=== PATIENT | female | born 1990 | race Caucasian/White ===

== ENCOUNTER 2016-11-26 13:48 | Inpatient (IN) | payer OTHER ==
[~2016-11-26] VITALS: Ht 162.6 cm; Wt 71.0 kg
[~2016-11-26 13:48] MED LIST: BND25 PO; MTR600X PO; PRENTAB26 PO
[2016-11-26] MEDS ORDERED: LACTATED RINGER'S 1000ML 1,000 ML IV PRN (14:31)
[2016-11-26] MEDS ORDERED: LACTATED RINGER'S 1000ML 1,000 ML IV SCH ×2 (14:31→19:02)
[2016-11-26] MEDS ORDERED: CEFAZOLIN IV 2,000 MG in DEXTROSE 5% 50ML 50 ML IV ONE ×2 (14:45→18:00)
--- NOTE | 2016-11-26 15:05 | HISTORY & PHYSICAL EXAMINATION ---
DATE OF ADMISSION: 11/26/2016 CHIEF COMPLAINT: Sent from office for nonreactive NST and low biophysical profile. HISTORY OF PRESENT ILLNESS: The patient is a 26-year-old G2, P1-0-0-1 at 40 weeks and 1 day of gestation who presented to office today for a routine nonstress test for postdates. The heart rate was around 150s with minimal variability. She had 1 decel to 100 with quick recovery. She was sent to ultrasound for biophysical profile. Her RAJESH was normal at 19 cm but they have not seen any movements or breathing and the BPP was 2/10. She was sent to here for further management. She has no complaints other than being nervous. She had normal spontaneous vaginal delivery last year by myself and uncomplicated. This has been uncomplicated. She has been feeling lots of movements until 2 days ago when the baby movement was decreased some per her. She states baby has been still moving enough but not as much as before. Baby was moving this morning around 9:00 a.m. She does not remember how many times. She denies contractions, leakage of fluid, or vaginal bleeding. She denies fever, chills, chest pain, shortness of breath, headache, change in her vision or any cold symptoms. Her has been uncomplicated except: 1. GBS positive. GBS was positive in her urine. 2. History of depression. She was on BuSpar. She stopped that during and she is doing well now. PAST MEDICAL HISTORY: As above. PAST SURGICAL HISTORY: None. MEDICATIONS: vitamins, vitamin D3 and probiotic. ALLERGIES: No known drug allergies. SOCIAL HISTORY: The patient denies smoking, alcohol or drug use. OBSTETRICAL HISTORY: She delivered full term in April 2015, baby was 9 pounds 5 ounces boy uncomplicated. This is her second . LABS: Her blood type is O positive, antibody screen negative, GC chlamydia cultures were negative and H\T\H was 13/40, platelets 276. Rubella titer positive, RPR nonreactive, hepatitis B surface antigen negative. HIV negative. Glucola was 144 mg per deciliter and 3-hour OGGT had 1 elevated number. The rest 3 numbers were normal. Her GBS was positive in urine. PHYSICAL EXAMINATION: GENERAL: The patient is alert, oriented x3. She is nervous but not in acute distress. VITAL SIGNS: Blood pressure is 121/76, temperature is 98.9, pulse is 96. CARDIOVASCULAR SYSTEM: S1, S2, RRR. LUNGS: Clear to auscultation bilaterally. ABDOMEN: Soft, nontender, gravid. Jas's 8 pounds. EXTREMITIES: Nontender, no edema. PELVIC EXAMINATION: Cervix is 3-4 cm dilated, 60%, -3 and vertex. scalp stimulation was done during the exam and the heart rate baseline was 170 and it increased to 175. NST: when she presented baseline was 170 and with minimal variability, no acceleration. There was 1 deceleration which appeared like variable to 120 with a quick recovery. Tebbetts: mild irregular ctxs q4-5 min ASSESSMENT AND PLAN: The patient is a 26-year-old G2, P1-0-0-1 at 40 weeks and 1 day of gestation, sent from office for nonreactive NST and BPP 2/10. Vital signs stable, afebrile. No medical problems. GBS positive. The patient is nervous and she wants to avoid . Discussed the findings with her that heart rate is nonreassuring and offered her a trial of IV fluid hydration, oxygen. If this improves we will consider induction of labor with continuous monitoring. If no improvement with IV fluids and oxygen then we recommend imminent delivery via . The patient understands and agrees with the plan. All questions were answered. EMILED
[2016-11-26 15:14] LABS: HEMATOCRIT 33.4 % (37-47); MEAN CORPUSCULAR HEMOGLOBIN 30.9 pg (25-34); MEAN CORPUSCULAR HGB CONC 33.2 g/dl (32-36); MEAN PLATELET VOLUME 10.2 fL (7.4-10.4); PLATELET COUNT 171 K/uL (130-400); RED BLOOD COUNT 3.59 M/uL (4.2-5.4); WHITE BLOOD COUNT 16.21 K/uL (4.8-10.8)
[2016-11-26] MEDS ORDERED: PENICILLIN G POTASSIUM IV 6 MU in DEXTROSE 5% 250ML 250 ML IV ONE (15:15)
[2016-11-26] MEDS ORDERED: PENICILLIN G POTASSIUM IV 3 MU in DEXTROSE 5% 100ML 100 ML IV PRN (15:15)
[2016-11-26] MEDS ORDERED: LIDOCAINE HCL 2% JELLY 30 ML TUBE EXT ONE (15:23)
[2016-11-26 15:46] VITALS: Ht 162.6 cm; Wt 71.0 kg
[2016-11-26] MEDS ORDERED: CHOL400T (15:51)
[2016-11-26] MEDS ORDERED: FENTANYL CITRATE INJ 50 MCG/1 ML 2 ML VIAL ONE ×3 (16:09→17:10)
[2016-11-26] MEDS ORDERED: FENTANYL 2MCG/ML ROPIV 1.25MG/ML 100ML BAG EPI ONE (16:09)
[2016-11-26] MEDS ORDERED: EpHEDrine SULFATE INJ 50 MG/ML AMP ONE (16:09)
[2016-11-26] MEDS ORDERED: BUPIVACAINE 0.25% 30 ML VIAL ONE (16:09)
[2016-11-26] MEDS ORDERED: MoRPHine SULFATE PF 1 MG/ML 10 ML AMP/VIAL ONE ×2 (16:49→17:10)
[2016-11-26] MEDS ORDERED: CITRIC ACID/SODIUM CITRATE 15 ML UDC ONE (16:56)
[2016-11-26] MEDS ORDERED: CITRIC ACID/SODIUM CITRATE 15 ML UDC PO ONE (17:30)
[2016-11-26] MEDS ORDERED: CEFAZOLIN SOD 1 GM VIAL ONE (17:41)
[2016-11-26] MEDS ORDERED: PHENYLEPHRINE HCL INJ 10 MG/ML VIAL ONE (18:03)
[2016-11-26] MEDS ORDERED: NALOXONE HCL INJ 1 MG in SODIUM CHLORIDE 0.9% 1000ML 1,000 ML IV PRN ×4 (18:09)
[2016-11-26] MEDS ORDERED: NALOXONE HCL INJ 0.08 MG in SYRINGE 1.8 ML IV PRN (18:09)
[2016-11-26] MEDS ORDERED: SODIUM CHLORIDE 0.9% 1000ML 1,000 ML IV PRN (18:09)
[2016-11-26] MEDS ORDERED: LACTATED RINGER'S 1000ML 500 ML IV PRN (18:09)
[2016-11-26] MEDS ORDERED: MIDAZOLAM HCL 1 MG/ML 2ML VIAL ONE (18:13)
[2016-11-26] MEDS ORDERED: NO NARCOTICS OR SEDATIVES SCH (18:15)
[2016-11-26] MEDS ORDERED: EpHEDrine SULFATE INJ 50 MG/ML AMP IV PRN (18:15)
[2016-11-26] MEDS ORDERED: PROMETHAZINE HCL INJ 25 MG in SODIUM CHLORIDE 0.9% 50ML 50 ML IV PRN (18:15)
[2016-11-26] MEDS ORDERED: NALOXONE HCL 0.4 MG/1 ML VIAL/CARP IV PRN (18:15)
[2016-11-26] MEDS ORDERED: NALBUPHINE HCL INJ 10 MG/ML AMP IV PRN (18:15)
[2016-11-26] MEDS ORDERED: MoRPHine SULFATE PF 1 MG/ML 10 ML AMP/VIAL EPI PRN (18:15)
[2016-11-26] MEDS ORDERED: ONDANSETRON INJ 2 MG/ML 2 ML VIAL IV PRN (18:15)
[2016-11-26] MEDS ORDERED: DiphenhydrAMINE HCL 50 MG/ML VIAL IV PRN (18:15)
[2016-11-26] MEDS ORDERED: OXYTOCIN INJ 10 UNITS/ML VIAL ONE (18:20)
[2016-11-26] MEDS ORDERED: KETOROLAC TROMETHAMINE 30 MG/ML VIAL ONE (18:20)
--- NOTE | 2016-11-26 19:14 | [facility] Post Operative Brief Note ---
Immediate Operative Summary Operative Date Nov 26, 2016. Pre-Operative Diagnosis Non-reassuring heart rate, remote from delivery Post-Operative Diagnosis Same Procedure(s) Performed Primary low transverse section Surgeon Dr. Mercado Display Artist Surgeon(s) Dr. Davis Estimated Blood Loss 400 Findings Viable male infant Apgars 8/9 Normal uterus fallopian tubes and ovaries Specimens A: Placenta (exam) B: Cord Blood C: Arterial/Venous cord gasses Drains Gorman 275 mg Anesthesia Spinal Complication(s) None Disposition L&D
[2016-11-26] MEDS ORDERED: DIPHTHERIA/TETANUS/PERTUSSIS 0.5 ML SYR/VIAL IM. ONE (19:15)
[2016-11-26] MEDS ORDERED: SENNA 8.6 MG TAB PO PRN (19:15)
[2016-11-26] MEDS ORDERED: HYDROCORTISONE ACETATE 25 MG SUPP PR PRN (19:15)
[2016-11-26] MEDS ORDERED: MEASLES, MUMPS & RUBELLA VIRUS VIAL SQ. ONE (19:15)
[2016-11-26] MEDS ORDERED: SUPERCREAM 0.870 % 15GM JAR EXT PRN (19:15)
[2016-11-26] MEDS ORDERED: BENZOCAINE 20% AER SPR 82.5 GM CAN EXT PRN (19:15)
[2016-11-26] MEDS ORDERED: MAGNESIUM HYDROXIDE SUSP 30 ML UDC PO PRN (19:15)
[2016-11-26] MEDS ORDERED: LANOLIN OINT EXT PRN ×2 (19:15)
[2016-11-26] MEDS: OXYTOCIN INJ 20 UNITS in LACTATED RINGER'S 1000ML 1,000 ML IV SCH (19:27)
--- NOTE | 2016-11-26 19:48 | Anesthesiology Progress Note ---
Anesthesia Post Op Note Date & Time Nov 26, 2016 at 19:47 Notes Mental Status: alert / awake / arousable, participated in evaluation Pt Amnestic to Procedure: No Nausea / Vomiting: adequately controlled Pain: adequately controlled Airway Patency, RR, SpO2: stable & adequate BP & HR: stable & adequate Hydration State: stable & adequate Neuraxial Anesthesia: was administered, sensory block is resolving Anesthetic Complications: no major complications apparent
[2016-11-26] MEDS: DOCUSATE SODIUM 100 MG CAP PO SCH (20:00)
[2016-11-26] MEDS: SIMETHICONE 80 MG CHEW PO SCH (21:00)
[2016-11-26 21:15] VITALS: BP 104/63; PULSE 86; TEMP 36.9; O2SAT 100; O2SAT 98
--- NOTE | 2016-11-26 21:32 | OB/GYN Progress Note ---
WAITER WAITRESS Progress Note Date of Service: Nov 26, 2016. Patient is reevaluated No pain at surgical site yet. Discussed surgery, small superficial laceration on baby's right cheek, pediatricina not ceoncerned, and did not recommend anyhing. Will spontaneously heal by its own. She is okay with this. She can move her legs She has been anxious since she presented to L&D, feeling better after C section She has h/o pp depression, anxiety/ panic attacks after her 1st baby in 2014. She has tried 3 different antidepressants with no help and multiple side effects She has been of them since last May She has been seeing counselor for the last 3-4 months, they recommended her to see a psychiatrist after delivery She feels fine now and likes to see psychiatrist while she is here. Will place the order VSS Afebrile, UOP adequate Abd: soft, NT, fundus firm below U, lochia minimal, dressing dry SCD's on Plan: monitor closely Psyhc consult
[2016-11-26 21:45] VITALS: BP 111/62; PULSE 90; TEMP 36.8; O2SAT 100
[2016-11-26 22:45] VITALS: BP 100/64; PULSE 96; TEMP 36.3; O2SAT 100
[2016-11-26 23:45] VITALS: BP 103/66; PULSE 92; TEMP 36.8; O2SAT 93
[2016-11-27] VITALS (18 sets, daily range): BP systolic 91–105; BP diastolic 55–68; PULSE 88–101; TEMP 36.8–37.4; O2SAT 92–96
--- NOTE | 2016-11-27 03:21 | OPERATIVE REPORT ---
DATE OF OPERATION: 11/26/2016 PREOPERATIVE DIAGNOSIS: The patient is a 26-year-old G2, P 1-0-0-1, at 40 weeks and 1 day of gestation, presented from office with nonreactive nonstress test and biophysical profile of 2/10 and recurrent hear rate decelerations during labor and remote from delivery. POSTOPERATIVE DIAGNOSIS: Same. PROCEDURE: Primary low transverse with Pfannenstiel skin incision. SURGEON: Dr. Henson. PRODUCTION MINER: Dr. Davis. ESTIMATED BLOOD LOSS: 400 FLUIDS: 1500 mL of lactated Ringer's. DRAINS: Gorman drained 275 mL of clear urine. ANESTHESIA: Spinal. Dr. Celis. COMPLICATIONS: None. FINDINGS: Baby was a viable male , Apgars 8/9, delivered at 1756 p.m. Baby was in cephalic presentation with occiput posterior position. Weight 3820 grams. MATERNAL FINDINGS: Normal uterus, fallopian tubes and ovaries. DESCRIPTION OF PROCEDURE: The patient was taken to the operating room where anesthesia was given without difficulty. She was placed in dorsal supine position with a leftward tilt. She was prepared and draped in usual sterile fashion. A Pfannenstiel skin incision was made and carried through to the underlying layer of fascia with Bovie. Fascia was incised in the midline and incision extended laterally with the help of Hernandez scissors. Lower aspect of the fascial incision was grasped with 2 Cameron clamps, elevated, underlying rectus muscles were dissected off sharply with Hernandez scissors. Upper aspect of the fascial incision was then grasped with 2 Cameron clamps, elevated, underlying rectus muscles were dissected off sharply with Hernandez scissors. Rectus muscles were in the midline and the peritoneum was entered bluntly with fingers and the incision was extended superiorly and inferiorly with good visualization of the bladder. Bladder blade was inserted. Lower uterine segment was incised in transverse fashion and then clear fluid was obtained. Then, the baby's head was delivered without difficulty, shoulders were delivered with minimal traction. Mouth and nose were suctioned. Cord was clamped x2 and cut, it was a 3-vessel cord. Then the baby was handed off to the soaking pit operator, Dr. Velasquez. Cord blood was obtained. Placenta was delivered manually as intact and complete. Uterus was exteriorized, cleared off all clots and debris. Uterine incision was repaired with 0 Vicryl in a running locked fashion and a second imbricating layer was placed with 0 Vicryl in a running locked fashion and excellent hemostasis was achieved. Uterus was returned to the abdomen and pelvis was irrigated with warm normal saline and suctioned. Incision was checked to be again hemostatic. Parietal peritoneum was reapproximated with 3-0 Vicryl in a running fashion and rectus muscles were reapproximated with the same suture, 3-0 Vicryl in a running fashion. Rectus fascia was reapproximated with 0 Vicryl in a running fashion. Subcuticular fat tissue was brought together with 3-0 Vicryl in a running fashion. Skin was closed with 4-0 Monocryl in a subcuticular fashion. Mother and baby tolerated the procedure well. Sponge, lap, needle and instrument counts were correct x3 at the end of the procedure and the patient was given cefazolin before the procedure and no complications happened. I was present during the whole procedure. The patient was taken to recovery room in stable condition. I attest to the content of the Intraoperative Record and any orders documented therein. Any exceptions are noted below. EMILED
[2016-11-27] MEDS: OXYTOCIN INJ 20 UNITS in LACTATED RINGER'S 1000ML 1,000 ML IV SCH (04:01)
[2016-11-27] MEDS ORDERED: NURSING VERBAL MED ORDER ONE (04:30)
--- NOTE | 2016-11-27 04:44 | OB/GYN Progress Note ---
CALL CENTER COORDINATOR Progress Note Date of Service: Nov 27, 2016. I was called y her nurse than her BP was 90/60, UOP was low, " not much in the bag", " dark" Patient is seen and examined Feels well, no complaints, other than being tired. Pain is under control with meds She was nauseous earlier after surgery and vomited about 1000 ml. Zofran and Phenergan helped. No CP/ SOB/ Dizziness/ N&V/ VB/ Leg pain Not OOB yet Tolerating clears Date Time Temp Pulse Resp B/P Pulse Ox O2 Delivery O2 Flow Rate FiO2 11/27/16 02:45 16 92 11/27/16 01:35 18 94 11/27/16 00:00 16 92 11/26/16 23:45 36.8 92 16 103/66 93 Room Air 11/26/16 23:45 16 93 11/26/16 23:45 93 Room Air 11/26/16 22:45 18 100 11/26/16 22:45 36.3 96 18 100/64 100 Room Air 11/26/16 21:45 36.8 90 16 111/62 100 Room Air 11/26/16 21:45 16 100 11/26/16 21:15 36.9 86 16 104/63 98 Room Air 11/26/16 21:15 100 Room Air Pulse:88, Pulse OX; 99% RA PE: General: Alert, orientedx3, NAD CVS: S1S2 RRR Lungs: CTAB Abd: soft, NT, ND, BS+, Incision C/D/I, Fundus firm -1 No VB Ext: NT, no edema, SCD's on Gorman had 200 ml dark urine and was clamped. Clamp was opened: drained clear urine: The bag was emptied: 375 ml since 915 pm. last night AP: 26 yo female s/p Primary Csection , pod#1 VSS, low normal BP, normal pulse Afebrile clinically doing well s/p emesis of 1000 ml, UOP adequate Will run stat CBC, IVF bolus and continue to monitor Continue to monitor closely
[2016-11-27] MEDS ORDERED: LACTATED RINGER'S 1000ML 500 ML IV SCH (04:45)
[2016-11-27 04:47] LABS: HEMATOCRIT 31.4 % (37-47); MEAN CELL VOLUME 93.2 fL (80-100); MEAN CORPUSCULAR HEMOGLOBIN 31.5 pg (25-34); MEAN PLATELET VOLUME 9.5 fL (7.4-10.4); PLATELET COUNT 156 K/uL (130-400); RED BLOOD COUNT 3.37 M/uL (4.2-5.4); WHITE BLOOD COUNT 22.98 K/uL (4.8-10.8)
[2016-11-27 05:17] LABS: MEAN CORPUSCULAR HGB CONC 33.8 g/dl (32-36)
[2016-11-27 05:18] LABS: BASO % 0.1 %; BASO ABS # 0.02 K/uL (0-0.2); COMPLETE YES; IG% 0.4 %; LYMPH % 5.2 %; LYMPH ABS # 1.19 K/uL (1.2-3.4); MONO % 4.7 %; NEUT % 89.6 %
[2016-11-27] MEDS: KETOROLAC TROMETHAMINE 30 MG/ML VIAL IV. PRN ×2 (05:36→11:32)
[2016-11-27] MEDS: DOCUSATE SODIUM 100 MG CAP PO SCH ×2 (08:18→19:46)
[2016-11-27] MEDS: SIMETHICONE 80 MG CHEW PO SCH ×4 (08:18→19:46)
[2016-11-27] MEDS: FERROUS SULFATE 325 MG TAB PO SCH (08:18)
[2016-11-27] MEDS: PRENATAL VITAMIN TAB PO SCH (08:19)
--- NOTE | 2016-11-27 09:12 | Surgery Progress Note ---
Surgery Progress Note Date of Service Nov 27, 2016. Subjective Post OP Day: 1 + diet, + feeling well, + pain controlled Objective Vital Signs: Date Time Temp Pulse Resp B/P Pulse Ox O2 Delivery O2 Flow Rate FiO2 11/27/16 08:20 95 Room Air 11/27/16 08:20 18 95 11/27/16 07:30 37.1 88 16 93/56 96 Room Air 11/27/16 06:45 16 92 11/27/16 05:40 18 99/55 93 Room Air 11/27/16 05:40 18 93 11/27/16 04:20 16 95 11/27/16 04:20 36.8 99 16 91/56 95 Room Air 11/27/16 03:45 16 94 11/27/16 02:45 16 92 11/27/16 01:35 18 94 11/27/16 00:00 16 92 11/26/16 23:45 36.8 92 16 103/66 93 Room Air 11/26/16 23:45 16 93 11/26/16 23:45 93 Room Air 11/26/16 22:45 18 100 11/26/16 22:45 36.3 96 18 100/64 100 Room Air 11/26/16 21:45 36.8 90 16 111/62 100 Room Air 11/26/16 21:45 16 100 11/26/16 21:15 36.9 86 16 104/63 98 Room Air 11/26/16 21:15 100 Room Air Abdomen: non tender, non distended, soft Incision(s): clean, dry, intact Extremities: non-tender Laboratory Results: Results Past 24 Hours Test 11/26/16 14:55 11/27/16 04:40 Range/Units White Blood Count 16.21 22.98 4.8-10.8 K/uL Red Blood Count 3.59 3.37 4.2-5.4 M/uL Hemoglobin 11.1 10.6 12.0-16.0 g/dL Hematocrit 33.4 31.4 37-47 % Mean Corpuscular Volume 93.0 93.2 80-100 fL Mean Corpuscular Hemoglobin 30.9 31.5 25-34 pg Mean Corpuscular Hemoglobin Concent 33.2 33.8 32-36 g/dl RDW Standard Deviation 46.1 46.0 36.4-46.3 fL RDW Coefficient of Variation 13.5 13.6 11.5-14.5 % Platelet Count 171 156 130-400 K/uL Mean Platelet Volume 10.2 9.5 7.4-10.4 fL Neutrophils (%) (Auto) 89.6 % Lymphocytes (%) (Auto) 5.2 % Monocytes (%) (Auto) 4.7 % Eosinophils (%) (Auto) 0.0 % Basophils (%) (Auto) 0.1 % Neutrophils # (Auto) 20.60 1.4-6.5 K/uL Lymphocytes # (Auto) 1.19 1.2-3.4 K/uL Monocytes # (Auto) 1.08 0.11-0.59 K/uL Eosinophils # (Auto) 0.00 0-0.5 K/uL Basophils # (Auto) 0.02 0-0.2 K/uL Immature Granulocyte % (Auto) 0.4 % Immature Granulocyte # (Auto) 0.09 0.00-0.02 K/uL Red Blood Cell Morphology Unremarkable Assessment & Plan regular diet advance care
[2016-11-27 10:20] LABS: URINE APPEARANCE CLEAR (CLEAR); URINE BILIRUBIN NEG (NEG); URINE COLOR YELLOW; URINE EPITHELIAL CELL AUTO 0-5 /lpf (0-5); URINE NITRITE NEG (NEG); URINE PH 7.5 (4.5-7.5); URINE SPECIFIC GRAVITY 1.002 (1.000-1.030); UROBILINOGEN NEG (NEG); ZZURINE CULT IF INDIC CATH NO
[2016-11-27 10:27] LABS: MANUAL MICROSCOPIC REQUIRED? NO; REVIEW REQ? NO
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
[2016-11-27] MEDS ORDERED: DC INTRASPINAL MORPHINE ONE (15:00)
[2016-11-27] MEDS ORDERED: ONDANSETRON INJ 2 MG/ML 2 ML VIAL IV PRN (15:01)
[2016-11-27] MEDS ORDERED: MEPERIDINE HCL 50 MG/ML CARP IV PRN (15:01)
[2016-11-27] MEDS ORDERED: MEPERIDINE HCL 75 MG/ML CARP IV PRN (15:01)
[2016-11-27] MEDS ORDERED: OXYCODONE/ACETAMINOPHEN 5-325 TAB PO PRN (15:01)
[2016-11-27] MEDS ORDERED: DiphenhydrAMINE HCL 50 MG/ML VIAL IV PRN (15:01)
[2016-11-27] MEDS ORDERED: PROMETHAZINE HCL INJ 25 MG in SODIUM CHLORIDE 0.9% 50ML 50 ML IV PRN (15:01)
[2016-11-27] MEDS ORDERED: KETOROLAC TROMETHAMINE 30 MG/ML VIAL IV. PRN (15:01)
[2016-11-27] MEDS ORDERED: BISACODYL 5 MG TABEC PO ONE (22:00)
[2016-11-28] MEDS: OXYCODONE/ACETAMINOPHEN 5-325 TAB PO PRN ×7 (00:45→23:35)
[2016-11-28] MEDS: IBUPROFEN 600 MG TAB PO PRN ×7 (00:45→23:35)
[2016-11-28 06:24] LABS: BASO % 0.1 %; BASO ABS # 0.01 K/uL (0-0.2); EOS % 0.7 %; HEMATOCRIT 27.8 % (37-47); IG% 0.5 %; LYMPH % 5.7 %; LYMPH ABS # 0.79 K/uL (1.2-3.4); MEAN CELL VOLUME 94.2 fL (80-100); MEAN CORPUSCULAR HEMOGLOBIN 30.8 pg (25-34); MEAN PLATELET VOLUME 9.4 fL (7.4-10.4); MONO % 4.3 %; NEUT % 88.7 %; PLATELET COUNT 149 K/uL (130-400); RED BLOOD COUNT 2.95 M/uL (4.2-5.4); WHITE BLOOD COUNT 13.78 K/uL (4.8-10.8)
[2016-11-28 06:25] LABS: COMPLETE YES; MEAN CORPUSCULAR HGB CONC 32.7 g/dl (32-36)
[2016-11-28] MEDS ORDERED: BISACODYL 10 MG SUPP PR PRN (07:00)
[2016-11-28 07:45] VITALS: BP 95/58; PULSE 79; TEMP 36.3; O2SAT 100
[2016-11-28] MEDS: PRENATAL VITAMIN TAB PO SCH (08:32)
[2016-11-28] MEDS: SIMETHICONE 80 MG CHEW PO SCH ×4 (08:32→20:02)
[2016-11-28] MEDS: DOCUSATE SODIUM 100 MG CAP PO SCH ×2 (08:32→20:02)
[2016-11-28] MEDS: FERROUS SULFATE 325 MG TAB PO SCH (08:32)
--- NOTE | 2016-11-28 10:37 | OB/GYN Progress Note ---
SENIOR TECH MANUFACTURING ENGINEERING Progress Note Date of Service: Nov 28, 2016. Patient is seen and examined. She feels well, no complaints other than soreness in the incision when she gets up. Pain is under control with oral meds. Pain: 11/19 now at rest Ambulating without dizziness Voiding without difficulty Tolerating regular diet with out N&V Flatus + BM neg Bleeding is minimal No fever/ chills/ CP/ SOB/ N&V/ Leg pain Breast feeding without problems She has been anxious during this and peripartum period. She has seen 3 people from mental health yesterday. Dr. Baldwin recommended medication but she declined. See her note for details. The patient states " I am not going to take medications" Date Time Temp Pulse Resp B/P Pulse Ox O2 Delivery O2 Flow Rate FiO2 11/28/16 07:45 36.3 79 18 95/58 100 Room Air 11/28/16 07:45 100 Room Air 11/27/16 23:25 36.9 101 20 105/68 Room Air 11/27/16 23:25 Room Air 11/27/16 19:08 37.4 11/27/16 15:30 18 95 11/27/16 15:30 96 Room Air 11/27/16 15:30 37.2 99 18 103/65 96 Room Air 11/27/16 14:30 18 96 11/27/16 13:30 18 93 11/27/16 12:30 36.8 91 18 97/62 93 Room Air 11/27/16 12:30 18 93 11/27/16 11:00 18 96 PE: General: Alert, orientedx3, NAD CVS: S1S2 RRR Lungs; CTAB Abd: soft, NT, fundus firm, below Umbilicus Incision: Clean, dry, intact Perineum intact, Lochia rubra minimal Ext; NT, no edema AP: 26 yo s/p C Section, pod# 2 VSS Afebrile doing well Anxiety: declines meds, psychiatry following Continue routine postop care Encourage ambulation, PO intake All questions were answered D/C home tomorrow
[2016-11-28 16:35] VITALS: BP 92/56; PULSE 84; TEMP 36.5; O2SAT 100
--- NOTE | 2016-11-28 19:43 | OB/GYN Progress Note ---
DIESEL TECHNICIAN Progress Note Date of Service: Nov 28, 2016. I was called by her nurse about the placental pathology The patient is seen and examined No complaints Incisional pain is getting better She has been walking around hallways with no problems, has been taking 1 Percocet and Motrin No fever/ chills/ N&V Breast feeding baby and he is doing well VSS Afebrile Date Time Temp Pulse Resp B/P Pulse Ox O2 Delivery O2 Flow Rate FiO2 11/28/16 16:35 36.5 84 18 92/56 100 Room Air 11/28/16 16:35 100 Room Air 11/28/16 07:45 36.3 79 18 95/58 100 Room Air 11/28/16 07:45 100 Room Air 11/27/16 23:25 36.9 101 20 105/68 Room Air 11/27/16 23:25 Room Air Abd: soft, NT, incision C/D/I, her pad dry, no d/c or odor Baby has been afebrile Mother has been afebrile since admission to hospital WBCC is coming down No s/s clinically evident infection Will continue to monitor closely Patient is aware above and agrees with plan
[2016-11-29 00:10] VITALS: BP 97/56; PULSE 90; TEMP 36.5
[2016-11-29] MEDS: IBUPROFEN 600 MG TAB PO PRN ×3 (04:10→12:46)
[2016-11-29] MEDS: OXYCODONE/ACETAMINOPHEN 5-325 TAB PO PRN ×3 (04:10→12:45)
[2016-11-29 08:10] VITALS: BP 109/68; PULSE 70; TEMP 36.5; O2SAT 98
[2016-11-29] MEDS: FERROUS SULFATE 325 MG TAB PO SCH (08:24)
[2016-11-29] MEDS: PRENATAL VITAMIN TAB PO SCH (08:24)
[2016-11-29] MEDS: DOCUSATE SODIUM 100 MG CAP PO SCH (08:24)
[2016-11-29] MEDS: SIMETHICONE 80 MG CHEW PO SCH ×2 (08:24→12:44)
[2016-11-29] MEDS ORDERED: MTR600X PO (08:32)
[2016-11-29] MEDS ORDERED: OXYC-57 PO (08:32)
--- NOTE | 2016-11-29 08:34 | Discharge Instructions ---
Discharge Instructions Admission Reason for Admission: R/O Labor Discharge Discharge Diagnosis / Problem: term delivered by Discharge Goals Goal(s): Routine recovery after Activity Recommendations Activity Limitations: as noted below Lifting Limitations: no more than 10 pounds Exercise/Sports Limitations: gradually increase as tolerated May Resume Sexual Activity: after follow-up appointment Shower/Bathe: no limitations Driving or Machine Use: . Instructions / Follow-Up Instructions / Follow-Up ACTIVITY RECOMMENDATIONS: * Gradual return to full activity over the next 2-3 weeks. * No lifting - nothing heavier than baby over the next 2-3 weeks. * Do not engage in vigorous exercise, sexual activity or sports until cleared by your physician. * Do not drive or operate any motorized equipment until cleared by your physician. * You may shower/bathe daily. BREAST CARE: If you are not breast feeding: * Wear a supportive bra 24 hours a day for one to two weeks. * Avoid stimulating your breasts and nipples as much as possible during the first few weeks after delivery. * When taking a shower, have the warm water hit your back, not breasts. * When your breasts feel full, apply ice packs. Usually three to four times a day helps ease the discomfort. * Take a mild pain medication (Tylenol/Motrin) when you are uncomfortable. If breast feeding: * Use breast milk to lubricate nipples. Lansinoh cream may be used for sore nipples. You do not need to remove cream prior to breast feeding. If using a different brand of cream, check the label for directions regarding removal of cream prior to nursing. * Wear a supportive bra. * If having problems with breasts or breast feeding, call a oracle fusion consultant or your health care provider. OVER THE COUNTER MEDICATION: * For discomfort or pain, you may use Acetaminophen (Tylenol), Ibuprofen (Advil ), or Naproxen (Aleve) following the package directions. * For constipation you may use Colace following the package directions. SPECIAL CARE INSTRUCTIONS: When you are discharged from the hospital, it is important for you to follow the instructions listed below: * During the first week at home, you should be able to care for yourself and your baby. In addition, the usual light household activities are encouraged. * Limit your activities to the way you feel. Do not try to clean the house or move furniture. Be sensible. * If you actively engage in sports and have done so up until the time of your delivery, you may resume these activities as soon as you feel able. This may take up to one month or even longer. Use good judgment. * Continue to take your vitamins for at least six weeks after the of your baby. * Your diet need not be limited unless you were on a special diet before your delivery. Breast-feeding mothers need around 2500 calories per day and at least 64-80 ounces of fluid per day (8 to 10 glasses). * You should eat foods from the four major food groups. Crash diets or fad diets are to be avoided. Eating lean meats, fresh fruits and vegetables, low-fat dairy products, high fiber foods and a regular exercise program, will help you get back to your pre- weight without putting your health at risk. * Constipation is sometimes a problem after delivery. Take a mild laxative as needed. If breast feeding, Milk of Magnesia is acceptable to use. You may use a suppository or Fleets enema if no episiotomy. * A daily shower or tub bath is suggested. Be sure to thoroughly and gently dry the perineum. * A bloody vaginal discharge will usually continue until around four weeks post . A small amount of bleeding may continue for as long as six weeks. Vaginal discharge changes from the bright red bleeding after delivery to pink then brownish and finally yellowish-pink before becoming white and disappearing. * Bleeding may increase with activity. Your first period may come in 4-8 weeks. If you are breast feeding, your period may be delayed even longer. * Mellott (sex) can begin whenever both you and your partner feel comfortable and do not have any form of genital infection. It is recommended that you wait at least six weeks for internal and external healing to occur. If you have questions, please talk to your health care practitioner. A condom should be used to prevent infection and . * Foreplay, gentle intercourse and lubrication is very important the first several times to prevent pain. A water-based lubricant such as K-Y jelly or Astroglide may be used. * Tampons and/or Douching should be avoided until after six weeks check-up. * If you have RH negative blood and your baby is RH positive, you will receive RHOGAM by injection prior to discharge. The nurse will give you a card to keep with you that has the date and place that you received RHOGAM after delivery. * During your care, you had a Rubella screen done to check for the presence of rubella antibodies in your blood. If your test was negative, you will receive a Rubella vaccine prior to discharge. This vaccine may cause a fever, soreness at the injection site and flu-like symptoms. If these symptoms persist, notify your health care practitioner. is not advised for three months after a Rubella vaccine. * Verbalizes understanding of car seat law as reviewed with patient nursing. * Car Seat hand-out given and reviewed with patient by nursing. * Shaken baby information reviewed with patient by nursing. Call you doctor if: * Heavy bleeding (saturating several pads an hour) or passing clots the size of your fist. * A fever >101 degrees F (38.3 degrees C) on two occasions four hours apart and /or chills. * Unusual pain in the pelvic or vaginal areas. Pain should improve each day . * Call the doctor for any increased redness, drainage or swelling around the incision and any pain unrelieved by prescribed pain medication. * Any signs or symptoms of phlebitis (possible blood clots forming in the veins ): leg pain, warm, red or swollen area on leg. * "Baby Blues" lasting longer than two weeks. If you have any questions or concerns, call your health care practitioner at . FOLLOW-UP VISIT: * Incision check (staple removal) in 1 week. Please call doctor's office at to set up appointment. * Please call the office at to schedule a 6 week examination. It is important you keep this appointment. * It is important for you to make arrangements for either yearly or twice yearly check-ups thereafter. Current Hospital Diet Patient's current hospital diet: Regular Diet Discharge Diet Recommended Diet: Regular OB Diet Fluid Restriction: None Procedures Procedures Performed: Primary low transverse section Pending Studies Studies pending at discharge: no Medical Emergencies . Who to Call and When: Medical Emergencies: If at any time you feel your situation is an emergency, please call 911 immediately. . Non-Emergent Contact Non-Emergency issues call your: Primary Care Provider . . "Provider Documentation" section prepared by Luis Davis. VTE Core Measure Inpt VTE Proph given/why not?: Treatment not indicated
--- NOTE | 2016-11-29 08:36 | Surgery Progress Note ---
Surgery Progress Note Date of Service Nov 29, 2016. Subjective Post OP Day: 3 + diet, + feeling well, + flatus, + pain controlled Objective Vital Signs: Date Time Temp Pulse Resp B/P Pulse Ox O2 Delivery O2 Flow Rate FiO2 11/29/16 00:13 Room Air 11/29/16 00:10 36.5 90 18 97/56 Room Air 11/28/16 16:35 36.5 84 18 92/56 100 Room Air 11/28/16 16:35 100 Room Air General Appearance: no apparent distress Abdomen: non tender, non distended, soft Incision(s): clean, dry, intact Extremities: non-tender, normal inspection, no pedal edema Assessment & Plan advance care regular diet discharged
[2016-11-29 15:29] VITALS: BP_DIAS 68; PULSE 70; TEMP 36.5
--- NOTE | 2016-12-18 03:35 | DISCHARGE SUMMARY ---
REASON FOR ADMISSION: The patient is a 26-year-old G2, P1-0-0-1 at 40 weeks and 1 day of gestation, who presented to the office for a routine non-stress test for postdates and it was nonreactive with decelerations and her biophysical profile was 2/10. She was send to labor and delivery for delivery. The heart rate remained nonreactive with minimal variability and decelerations. After a trial of IVF bolus and expectant management per patient' s request, we proceeded with a primary on the same day, November 26. See dictated OP note for details. The patient delivered a viable male infant, Apgars 8/9. The weight was 3020 grams. On postop period, she was doing well surgically. Her vital signs were stable, afebrile, and the pain was under control. Urine output was adequate. She has been anxious since she presented to labor and delivery. She had a history of depression and anxiety panic attacks in 2014. She reported of trial of antidepressants with multiple side effects in the past and she had not been on any meds since then. We recommended a psychiatric consult, which she accepted. See the dictated their note for details. On postop day #1, the patient's blood pressures ran on the low side to 90s-60s and 100s-60s. She vomited one time, a 1000 mL. She was given Zofran and Phenergan, which helped. The patient denied any chest pain, shortness of breath, or dizziness. She was asymptomatic. She was still in the bed, tolerating clears. Her pulse was within normal limits. Pulse ox was 99% on room air. Her physical exam was unremarkable. Her urine output was 200 mL and dark. Her crowe was clamped to collect for a urine sample. When the clamp was opened, she drained clear urine and urine output was adequate. She was given IV fluid bolus and a CBC was done, which came with an H\T\H of 10.6/31.4. And later the same day, the patient was seen by Dr. Davis. She was doing well, tolerating diet. The pain was under control. Vital signs stable and adequate. Physical exam was unremarkable. She was advanced . She was also seen by psychiatry on postop day #1, Dr. Baldwin. See dictated note for details. On postop day #2, the patient was seen and examined. She was doing well, pain was under control with medications, ambulating without dizziness, voiding without difficulty, tolerating a regular diet without nausea or vomiting. She was passing gas. Vital signs stable, afebrile. She was . She was still anxious and she declined anti-depressive medications, which was recommended by psychiatry. She was continuously monitored. On postop day #3, she was seen by Dr. Davis again. She was doing well, passing gas and tolerating a regular diet. Vital signs stable, afebrile. She was discharged home with discharge instructions, when to call, prescriptions were written for pain, ibuprofen and Percocet as needed. She is to be followed in the office for incision check. ALEJANDRA
== END 2016-11-29 15:37 | disposition home or self-care (01) | DRG 766 ==
LOC: C.OPB 13:48 → C.LD 13:48 → C.OPB 14:34 → C.LD 14:34 → C.OBG 21:32
PROVIDERS: ADMIT Obstetrics & Gynecology; ATTEND Obstetrics & Gynecology
PROC: 10907ZC Drainage of Amniotic Fluid, Therapeutic from Products of Conception, Via Natural or Artificial Opening (ICD-10-PCS; principal; 2016-11-26 17:24)
PROC: 10D00Z1 Extraction of Products of Conception, Low, Open Approach (ICD-10-PCS; principal; 2016-11-26 17:24)
DX: O76 Abnormality in fetal heart rate and rhythm complicating labor and delivery (principal); O36.8130 Decreased fetal movements, third trimester, not applicable or unspecified; O48.0 Post-term pregnancy; O99.824 Streptococcus B carrier state complicating childbirth; O99.345 Other mental disorders complicating the puerperium; F41.1 Generalized anxiety disorder; O99.63 Diseases of the digestive system complicating the puerperium; R11.2 Nausea with vomiting, unspecified; Z3A.40 40 weeks gestation of pregnancy; Z37.0 Single live birth; Z86.59 Personal history of other mental and behavioral disorders; Z81.8 Family history of other mental and behavioral disorders

== ENCOUNTER 2023-09-15 15:42 | Observation (INO) ==
[2023-09-15 17:44] LABS: Appearance Urine Clear (Clear); Bilirubin Urine Negative (Negative); Blood Urine Negative (Negative); Color Urine Yellow; Glucose Urine UA Negative (Negative); Ketones Urine Negative (Negative); Leukocyte Esterase Urine Negative (Negative); Nitrite Urine Negative (Negative); Protein Urine Negative (Negative); Specific Gravity Urine 1.011 (1.000-1.030); Urobilinogen Urine Negative (Negative); pH Urine 6.5 (4.5-7.5)
[2023-09-15 17:47] LABS: Pregnancy Test, Urine Negative (Negative)
[2023-09-15 17:59] LABS: Basophils # (auto) 0.03 K/uL (0.00-0.20); Basophils % (auto) 0.4 %; Eosinophils # (auto) 0.31 K/uL (0.00-0.50); Eosinophils % (auto) 3.7 %; Hematocrit (blood only) 38.2 % (37.0-47.0); Hemoglobin 12.9 g/dl (12.0-16.0); Immature Granulocytes # (auto) 0.04 K/uL (0.01-0.20); Immature Granulocytes % (auto) 0.5 %; Lymphocytes # (auto) 2.53 K/uL (1.20-3.40); Lymphocytes % (auto) 30.1 %; Mean Corpuscular Hemoglobin 31.2 pg (25.0-34.0); Mean Corpuscular Hgb Conc 33.8 g/dL (32.0-36.0); Mean Corpuscular Volume 92.3 fL (80.0-100.0); Mean Platelet Volume 9.1 fL (9.4-12.4); Monocytes # (auto) 0.45 K/uL (0.11-0.59); Monocytes % (auto) 5.4 %; Neutrophils # (auto) 5.05 K/uL (1.40-6.50); Neutrophils % (auto) 59.9 %; Platelet Count 306 K/uL (130-400); RDW Coefficient of Variation 12.5 % (11.5-14.5); RDW Standard Deviation 42.1 fL (36.4-46.3); Red Blood Count 4.14 M/uL (4.20-5.40); White Blood Count 8.41 K/ul (4.8-10.8)
[2023-09-15 18:13] LABS: Albumin Globulin Ratio 1.6 (0.9-2); BUN Creatinine Ratio 22.2 (10-20); Bilirubin,Total 0.3 mg/dl (0.2-1.0); Creatinine Clr Calc Pharmacy 132.8 ml/min; Est GFR (African American) 137.6 ml/min; Est GFR (Non-African American) 118.7 ml/min; Globulin 3.2 gm/dl (2.5-4.0); Potassium 3.8 mmol/L (3.5-5.1); Total Protein 8.2 gm/dl (6.0-8.3)
[2023-09-15] MEDS ORDERED: PIPERACILLIN/TAZOBACTAM 4.5 GM/100 ML BAG IV ONE (18:15)
--- NOTE | 2023-09-15 19:36 | History & Physical Report ---
Date of Service September 15, 2023 Assessment & Plan (1) UTI (urinary tract infection): Plan ESBL UTI: We will start on ertapenem, probiotics added. CM consult for home antibiotic and disposition. Other chronic medical conditions: Continue home meds. DVT prophylaxis: Ambulation Full code History of Present Illness Chief Complaint: called in due to esbl uti/need for iv Rx. Primary Care Provider: NO PCP 33-year-old female with PMH of depression on fluoxetine who recently visited ED 09/13 for lower belly pain and was found to have UTI and discharged on Keflex was called in today due to ESBL UTI/need for IV antibiotic. Patient reports improvement in her lower belly pain but not complete resolution, denies fev er/chills/chest pain/cough/sore throat/belly pain/acute changes in her bowel habit and appetite. Patient denies smoking tobacco/uses alcohol 2-3 times a week, denies recreational drug use. Full code Medication discussed with the patient at bedside Plan of care discussed with the patient, she voiced understanding and was agreeable to the plan of care. Allergies Allergy/AdvReac Type Severity Reaction Status Date / Time No Known Allergies Allergy Unverified 10/04/18 21:20 Home Medications Medication Instructions Recorded Confirmed Type cephalexin 500 mg capsule 500 mg PO TID 10 days #30 caps 09/13/23 09/15/23 Rx fluoxetine 40 mg capsule 40 mg PO DAILY 09/15/23 09/15/23 History Past Med/Surg History Medical History (Updated 09/13/23 @ 18:09 by Roni Marcos DO) Post-dates Non-reactive NST (non-stress test) History of depression Generalized anxiety disorder Surgical History H/O section Social History Smoking Status: Never smoker Preferred Language: Estonian Current Living Situation: Family Feels Safe at Home: Yes Review of Systems Review of Systems: negative otherwise mentioned in HPI. Physical Exam Physical Exam: GENERAL: Alert and oriented x3. NAD, on RA. HEENT: No pallor, no icterus. Pupils equal, round and reactive to light. Oral mucosa moist. NECK: No JVD, no neck masses. HEART: S1 and S2 heard. Regular rate and rhythm. No murmur, no gallop. RESPIRATORY SYSTEM: Normal AP diameter. No accessory muscle use. No wheezing, no crackles. ABDOMEN: Soft, bowel sounds present, nontender, no distention. CENTRAL NERVOUS SYSTEM: No facial droop. Speech is clear. Obeys simple commands. Moves extremities. EXTREMITIES: No edema, no erythema seen. Results & Data Results & Data Vital Signs (Past 12 Hours) Vital Signs Temp Pulse Pulse Resp BP BP Pulse Ox 09/15/23 17:42 80 20 139/82 99 09/15/23 15:55 36.9 C 91 H 19 127/83 100 O2 Del Method 09/15/23 17:42 Room Air 09/15/23 15:55 Room Air (1) UTI (urinary tract infection) Hematuria presence: with hematuria Urinary tract infection type: acute cystitis Qualified Code(s): N30.01 - Acute cystitis with hematuria
--- NOTE | 2023-09-15 22:18 | Emergency Department Note ---
Impression & Plan Pyelonephritis, UTI (urinary tract infection), History of ESBL E. coli infection ED Provider Note CHIEF COMPLAINT: UTI HISTORY OF PRESENT ILLNESS: This 33 yo female patient presents to the emergency department after being called by the ED staff with results of extended-spectrum beta-lactam E. coli UTI. Patient was discharged from the ER several days ago on Keflex. She was contacted earlier today and notified. Patient was complaining of flank pain intermittently for most of the day. Patient states prior to being evaluated in the ED the first time she had had off-and-on suprapubic symptoms and urinary pressure x2 weeks. Patient denies any fevers or vomiting. She was advised to return to the emergency department for IV therapy. REVIEW OF SYSTEMS: A review of systems was performed with positives and pertinent negatives listed in the history of present illness. 10 systems were reviewed and are otherwise negative. ALLERGIES: see below MEDICATIONS: see below PMH: see below SOCIAL HISTORY: see below DDx: UTI, pyelonephritis, dehydration, acute kidney injury, drug resistant organism PHYSICAL EXAM: Vital signs reviewed. General: Well-appearing 33-year-old female, in no significant distress. HEENT: No scleral icterus, PERRLA, neck supple. Moist mucous membranes. Cardiovascular: Regular rate and rhythm, no extra sounds. Pulmonary: Clear to auscultation bilaterally, normal work of breathing. Abdomen: Soft, nontender, nondistended, positive bowel sounds. Musculoskeletal: Atraumatic, no peripheral edema. No significant CVA tenderness Neurologic: Patient awake alert and oriented x 3, speech is clear Skin: Warm, dry, no rash EXTERNAL medical records reviewed ED visit and CT imaging dated 09/13/2023. Pharmacy notes dated earlier today. EMERGENCY DEPARTMENT COURSE/MDM: This patient was evaluated and appeared to be in no significant distress. IV access was obtained and laboratory work was drawn. Patient was placed on the monitoring analyst and noted to be in a normal sinus rhythm. She was medicated with 4.5 g of IV Zosyn. Repeat UA does appear to be clear. Given the patient's flank discomfort, duration of UTI and ESBL E. coli growing, patient will be admitted for further evaluation and management from the [facility] team. She is expressed understanding of the plan and agreed MONITORING: An order for cardiac monitoring was placed and the patient is noted to be in a normal sinus rhythm at 76 beats per minute. DISPOSITION: Home Past Med/Surg History Medical History Post-dates Non-reactive NST (non-stress test) History of depression Generalized anxiety disorder Surgical History H/O section Social History Smoking Status: Never smoker Do You Dip or Chew Tobacco: No; Hx Alcohol Use: Yes Alcohol type: beer Hx Substance Use: No Preferred Language: Honduran Communication Ability: Effective Kettle Girl Required: No Beliefs That Will Affect Care: None Current Living Situation: Spouse Feels Safe at Home: Yes Safety Concerns: Feels Safe At This Time Assistive Devices: None Allergies Allergies Allergy/AdvReac Type Severity Reaction Status Date / Time No Known Allergies Allergy Unverified 10/04/18 21:20 Home Meds Home Medications Medication Instructions Recorded Confirmed fluoxetine 40 mg capsule 40 mg PO DAILY 09/15/23 09/15/23 Previous Rx's Medication Instructions Recorded cephalexin 500 mg capsule 500 mg PO TID 10 days #30 caps 09/13/23 Results & Data (ED) Vital Signs Vital Signs - 24 hr 09/15/23 15:55 09/15/23 17:42 Temperature 36.9 C Temperature Source Temporal Artery Scan Pulse Rate 91 H Pulse Rate [Finger] 80 Respiratory Rate 19 20 Respiratory Effort / Characteristics Non-Labored Spontaneous Respiratory Depth Normal Respiratory Pattern Regular Blood Pressure 127/83 Blood Pressure [Left Arm] 139/82 Blood Pressure Mean 97 Blood Pressure Mean [Left Arm] 101 Blood Pressure Position [Left Arm] Semi-fowlers Pulse Oximetry 100 99 Oxygen Delivery Method Room Air Room Air Sepsis Recent Fever Within 48 Hours No Sepsis New/Unexplained Change in Mental Status N/A Sepsis Action Taken by Nursing No Action Required Home Medications Current Medication List: was personally reviewed by me Laboratory Data 09/15/23 17:40 09/15/23 17:40 Lab Results 09/15/23 09/15/23 Range/Units 17:36 17:40 WBC 8.41 (4.8-10.8) K/ul RBC 4.14 L (4.20-5.40) M/uL Hgb 12.9 (12.0-16.0) g/dl Hct 38.2 (37.0-47.0) % MCV 92.3 (80.0-100.0) fL MCH 31.2 (25.0-34.0) pg MCHC 33.8 (32.0-36.0) g/dL RDW Std Deviation 42.1 (36.4-46.3) fL RDW Coeff of Atul 12.5 (11.5-14.5) % Plt Count 306 (130-400) K/uL MPV 9.1 L (9.4-12.4) fL Immature Gran % (Auto) 0.5 % Neut % (Auto) 59.9 % Lymph % (Auto) 30.1 % [place] % (Auto) 5.4 % Eos % (Auto) 3.7 % Baso % (Auto) 0.4 % Neut # (Auto) 5.05 (1.40-6.50) K/uL Lymph # (Auto) 2.53 (1.20-3.40) K/uL [place] # (Auto) 0.45 (0.11-0.59) K/uL Eos # (Auto) 0.31 (0.00-0.50) K/uL Baso # (Auto) 0.03 (0.00-0.20) K/uL Immature Gran # (Auto) 0.04 (0.01-0.20) K/uL Sodium 136 (136-145) mmol/L Potassium 3.8 (3.5-5.1) mmol/L Chloride 100 (98-107) mmol/L Carbon Dioxide 29 (21-32) mmol/L Anion Gap 7 (3-11) BUN 14 (6-23) mg/dl Creatinine 0.63 (0.6-1.2) mg/dl Est Cr Clr Drug Dosing 132.8 ml/min Est GFR ( Amer) 137.6 ml/min Est GFR (Non-Af Amer) 118.7 ml/min BUN/Creatinine Ratio 22.2 H (10-20) Glucose 102 H (70-99(Fasting)) mg/dl Calcium 10.0 (8.6-10.3) mg/dl Total Bilirubin 0.3 (0.2-1.0) mg/dl AST 18 (13-39) U/L ALT 16 (7-52) U/L Alkaline Phosphatase 71 (34-104) U/L Total Protein 8.2 (6.0-8.3) gm/dl Albumin 5.0 (3.4-5.0) gm/dl Globulin 3.2 (2.5-4.0) gm/dl Albumin/Globulin Ratio 1.6 (0.9-2) Urine Color Yellow Urine Appearance Clear (Clear) Urine pH 6.5 (4.5-7.5) Ur Specific [place] 1.011 (1.000-1.030) Urine Protein Negative (Negative) Urine Glucose (UA) Negative (Negative) Urine Ketones Negative (Negative) Urine Blood Negative (Negative) Urine Nitrite Negative (Negative) Urine Bilirubin Negative (Negative) Urine Urobilinogen Negative (Negative) Ur Leukocyte Esterase Negative (Negative) Urine Test Negative (Negative) Administered Medications Ertapenem 1,000 mg/ Syringe 10 mls @ 2 mls/min IV Q24H JO Stop: 09/25/23 22:25 Last Admin: 09/15/23 23:52 Dose: 2 mls/min Documented By: TAWANA Discontinued Medications Piperacillin Sod/Tazobactam Sod (Zosyn) 4.5 gm in 100 mls @ 200 mls/hr IV NOW ONE Stop: 09/15/23 18:44 Last Infusion: 09/15/23 20:47 Dose: Infused Documented By: reports developer: 09/15/23 18:51 Dose: 200 mls/hr Documented By: ESVIN Discharge Plan Visit Data Chief Complaint: Recheck/Abnormal Lab/Rx Stated Complaint: RECHECK, DOC REF, ABNORMAL LABS ED Provider: Denisa Carlton Discharge Problem: Pyelonephritis, UTI (urinary tract infection), History of ESBL E. coli infection Patient Disposition: Admitted As Inpatient Discharge Instructions Interventions: ED Discharge Assessment Last Done: 09/15/23 22:09 Discharge Problem: UTI (urinary tract infection) Qualifiers: Urinary tract infection type: acute pyelonephritis Qualified Code(s): N10 - Acute pyelonephritis
[2023-09-15] MEDS ORDERED: POLYETHYLENE (MIRALAX) 17 GM PACK PO PRN (22:26)
[2023-09-15] MEDS ORDERED: ACETAMINOPHEN 325 MG TAB PO PRN (22:26)
[2023-09-15] MEDS ORDERED: ONDANSETRON INJ 2 MG/ML 2 ML VIAL IV PRN (22:26)
[2023-09-15] MEDS ORDERED: ERTAPENEM SODIUM 1,000 MG in SYRINGE 0 ML IV SCH (23:30)
[2023-09-16 08:00] LABS: Hematocrit (blood only) 38.5 % (37.0-47.0); Mean Corpuscular Hemoglobin 31.1 pg (25.0-34.0); Mean Corpuscular Hgb Conc 33.8 g/dL (32.0-36.0); Mean Corpuscular Volume 92.1 fL (80.0-100.0); Mean Platelet Volume 9.2 fL (9.4-12.4); Platelet Count 283 K/uL (130-400); RDW Coefficient of Variation 12.4 % (11.5-14.5); RDW Standard Deviation 41.7 fL (36.4-46.3); Red Blood Count 4.18 M/uL (4.20-5.40); White Blood Count 7.02 K/ul (4.8-10.8)
[2023-09-16 08:20] LABS: BUN Creatinine Ratio 19.4 (10-20); Calcium 9.7 mg/dl (8.6-10.3); Creatinine Clr Calc Pharmacy 125.3 ml/min; Est GFR (African American) 138.3 ml/min; Est GFR (Non-African American) 119.3 ml/min; Potassium 4.5 mmol/L (3.5-5.1)
[2023-09-16] MEDS ORDERED: FLUoxetine HCL 20 MG CAP PO SCH (09:00)
[2023-09-16] MEDS ORDERED: ADVANCED PROBIOTIC 1250 MG CAPSULE PO SCH (09:00)
[2023-09-16] MEDS ORDERED: FOSFOMYCIN TROMETHAMINE 3 GM PACKET PO ONE (14:00)
--- NOTE | 2023-09-16 16:17 | Discharge Summary ---
Discharge Summary Date of Service September 16, 2023 Notes For Next Care Provider Patient diagnosed with ESBL UTI. Initially started on IV ertapenem. Discussed with infectious disease who recommended IV ertapenem for definitive treatment or could opt to try fosfomycin 3 g - 1 dose prior to discharge and then additional dose in 72 hours. Patient elected to go with fosfomycin due to lack of insurance. Will need close outpatient monitoring for resolution of symptoms. Medication Changes From Visit Fosfomycin, 3 g packet, due to take on 09/19/2023. This medication is a 2 dose regimen. You received the first dose prior to leaving the hospital on 09/16/2023. A daily probiotic was prescribed for you to take for additional 7 days. You may consider PYRIDIUM if you have a return of symptoms such as painful urination, pinching at the end of void, or bladder spasms. Admission HPI Per Admitting Provider 33-year-old female with PMH of depression on fluoxetine who recently visited ED 09/13 for lower belly pain and was found to have UTI and discharged on Keflex was called in today due to ESBL UTI/need for IV antibiotic. Patient reports improvement in her lower belly pain but not complete resolution, denies fever/chills/chest pain/cough/sore throat/belly pain/acute changes in her bowel habit and appetite. Patient denies smoking tobacco/uses alcohol 2-3 times a week, denies recreational drug use. Full code Medication discussed with the patient at bedside Plan of care discussed with the patient, she voiced understanding and was agreeable to the plan of care. Admission Exam Per Admitting Provider GENERAL: Alert and oriented x3. NAD, on RA. HEENT: No pallor, no icterus. Pupils equal, round and reactive to light. Oral mucosa moist. NECK: No JVD, no neck masses. HEART: S1 and S2 heard. Regular rate and rhythm. No murmur, no gallop. RESPIRATORY SYSTEM: Normal AP diameter. No accessory muscle use. No wheezing, no crackles. ABDOMEN: Soft, bowel sounds present, nontender, no distention. CENTRAL NERVOUS SYSTEM: No facial droop. Speech is clear. Obeys simple commands. Moves extremities. EXTREMITIES: No edema, no erythema seen. Principal Dx & Hospital Course #1 = Principal Diagnosis (1) UTI (urinary tract infection): Plan This is a otherwise healthy 33-year-old female who initially presented to ED on 09/13/2023 secondary to suprapubic pain and pressure and dysuria. Symptoms started approximately 2 weeks ago while [place] after having sexual intercourse with her . She had intermittent dysuria, 1 episode of hematuria and suprapubic pain and pressure. She denied any fever, chills, sweats, nausea, vomiting or flank pain. She was seen and evaluated by [facility] [employer] as outpatient and these cultures were negative. She was seen and evaluated in the ED on 09/13/2023 and initial urine culture showed evidence of urinary tract infection. She was initially started on oral Keflex however when culture came back positive for ESBL she was called to come back into the hospital for admission and IV antibiotics. Patient was started on IV ertapenem. Case was discussed with infectious disease whose recommendations for acute cystitis are daily ertapenem for 7 days for definitive treatment. Fosfomycin was discussed as an alternative with a 3 g packet dose prior to discharge an additional 3 g in 72 hours. Due to lack of insurance patient opted to go for the latter as well as she was very anxious to get discharged from the hospital to return home with her children. She was thoroughly educated regarding resolution of treatment as well as close follow-up with her primary care provider. If she were to not have complete resolution of symptoms or symptoms worsen including dysuria, hematuria, flank pain or fever or chills she is to contact PCP or come back to ED immediately. She agreed with above. On day of discharge her symptoms have been resolved. She is anxious as to how she contracted this infection. Discharge Exam Gen: WD/WN, NAD, A&O x3 HEENT: Normocephalic, atraumatic, conjunctivae moist, sclerae anicteric, mucous membranes moist. Lung: Clear to Auscultation bilaterally, no wheezes/rales/rhonchi Heart: Regular rate, regular rhythm, no murmurs, rubs, or gallops Abdomen: Soft, NT, ND +BS x 4 Extremities: No edema Skin: Warm, no rash, negative turgor. Updated Medication List Medication Instructions Recorded Confirmed Type fluoxetine 40 mg capsule 40 mg PO DAILY 09/15/23 09/15/23 History L.acidop,casei,lactis,rham-B.lact,ginger 2 cap PO DAILY #14 caps 09/16/23 Rx 625 mg (10 billion cell) capsule (Advanced Probiotic) fosfomycin tromethamine 3 gram 3 g PO Q3D 1 dose #1 ea 09/16/23 Rx oral packet Hospital Stay Data Consultations 09/15/23 18:58 ED Decision to Admit Stat Pending Results Patient Have Any Pending Studies at Discharge: Yes Discharge Instructions Given to Patient (Per Discharging Provider) MEDICATION CHANGES: Fosfomycin, 3 g packet, due to take on 09/19/2023. This medication is a 2 dose regimen. You received the first dose prior to leaving the hospital on 09/16/2023. A daily probiotic was prescribed for you to take for additional 7 days. You may consider PYRIDIUM if you have a return of symptoms such as painful urination, pinching at the end of void, or bladder spasms. SUMMARY OF TEST RESULTS: You were admitted to hospital secondary to a urinary tract infection that was d iagnosed on 09/13/2023. You were found to have a antibiotic resistant organism requiring initial IV antibiotics. PENDING TEST RESULTS: Blood cultures RECOMMENDATIONS FOR FOLLOW-UP: Please follow-up with your primary care provider as scheduled. You currently have blood cultures pending. Your family doctor will follow up on this. Your primary doctor may consider repeat urine testing in 1-2 weeks after completion of therapy given multi-drug resistance to ensure complete resolution. You will complete course of oral antibiotic on 09/19/2023. Please monitor for symptoms including worsening painful urination, lower abdominal pain, urinary frequency, blood in urine or fever. If you experience any of these please contact your family doctor or seek emergency department. OTHER INSTRUCTIONS: Seek medical attention if you have: * temperature above 101 * chest pain or trouble breathing * abdominal pain, nausea, vomiting * diarrhea, dark stools or bloody stools * any unanswered questions or concerns Call 911 if symptoms are severe. Please take good care of yourself. It has been a pleasure taking care of you. Please take care of yourself. If you have any questions regarding your recent hospitalization please contact [facility] and request Giuliana Moore @ [phone]. Ann Villa PA-C Total Time Total Time Spent Total Time Spent (In Minutes): 45 minutes
== END 2023-09-16 15:02 | disposition home or self-care (01) ==
LOC: ED 15:42 → 3N 19:13 → SUATTDRO 19:13 → INTOOBSV 19:13 → 3N 22:09